=== PATIENT | female | born 1985 | race Caucasian/White ===

== ENCOUNTER 2016-07-30 19:35 | Inpatient (IN) | payer SELFPAY ==
[2016-07-30] MEDS ORDERED: ONDANSETRON 4 MG/2 ML VIAL IVP ONE (20:23)
[2016-07-30] MEDS ORDERED: HYDROmorphONE/DILAUDID 1 MG/ML SYR IVP ONE (20:23)
[2016-07-30] MEDS ORDERED: NS 1,000 ML IV ONE (20:23)
--- NOTE | 2016-07-30 20:26 | EDPHY ---
H & P Time Seen by Provider: 07/30/16 20:20 HPI/ROS: HPI Abdominal pain. 31-year-old female by private vehicle with boyfriend. She complains of worsening right lower quadrant abdominal pain ongoing for 6 hours now. She has had nausea with 2 episodes of nonbilious, nonbloody vomiting. Prior abdominal surgical history includes a cholecystectomy and hysterectomy. Last bowel movement was earlier this morning. Described as normal. No bloody or melenic stool. Last meal was this morning. She describes having some gross hematuria. No other urinary complaints. No fever. ROS: Constitutional: No fever, no chills. No weakness. Eyes: No discharge. No changes in vision. ENT: No sore throat. No nasal congestion or rhinorrhea. Respiratory: No cough. No shortness of breath. Cardiac: No chest pain, no palpitations. Gastrointestinal: As above, no diarrhea. Genitourinary: As above. No dysuria or increased frequency with urination. Musculoskeletal: No back pain. No neck pain. No myalgias or arthralgias. Skin: No rashes. Neurological: No headache. No focal weakness or altered sensation. Past medical history: As above. Seizure disorder. Social history: Physical Exam: General Appearance: Alert, she appears uncomfortable. This patient is responding to questions appropriately and in full sentences. This patient appears well-hydrated and well-nourished. Eyes: Pupils equal and round no pallor or injection. No lid edema, erythema or injection. Respiratory: There are no retractions, lungs are clear to auscultation with good air movement bilaterally. Cardiovascular: Regular rate and rhythm. No murmur. Gastrointestinal: Focal right lower quadrant tenderness on palpation with guarding, no masses, bowel sounds normal. No Smith sign. Neurological: Motor sensory function is grossly intact. Cranial nerves are normal. Gait is normal. Skin: Warm and dry, no rashes. Musculoskeletal: Neck is supple and nontender. No CVA tenderness on palpation. Extremities are symmetrical. All joints range without pain or impingement. Psychiatric: No agitation. No depression. Database: EKG: Imaging: CT abdomen and pelvis with IV contrast: Significant for early appendicitis. Procedures: Emergency department course: IV placed. Patient placed on a monitor. She was started on IV normal saline with 1 L to be given over the next hour. She was initially given 1 mg of IV hydromorphone for pain and 4 mg of IV Zofran for nausea. I discussed differential diagnosis and need for CT imaging to evaluate for appendicitis. She consents. 8:50 p.m., patient awaiting CT imaging to evaluate for appendicitis. Care transferred to physician medical assistant dermatology Emir Laureano. Dr. Nuvia Huff is aware of this patient also. Differential Diagnosis: The differential diagnosis on this patient includes but is not limited to appendicitis, ureterolithiasis, ovarian torsion, ectopic , colitis, ovarian cyst. This represents a partial list of diagnoses considered. These considerations are based on history, physical exam, past history, reassessment and diagnostic testing. Smoking Status: Never smoked Constitutional: Initial Vital Signs Temperature (C) 37.1 C 07/30/16 19:58 Heart Rate 91 07/30/16 19:58 Respiratory Rate 20 07/30/16 19:58 Blood Pressure 112/71 07/30/16 19:58 O2 Sat (%) 95 07/30/16 19:58 O2 Delivery Mode Room Air Allergies/Adverse Reactions: cephalexin monohydrate [From Keflex] Allergy (Verified 07/30/16 19:57) ketorolac tromethamine [From Toradol] Allergy (Verified 07/30/16 19:57) morphine Allergy (Verified 07/30/16 19:57) nitrofurantoin [From Macrobid] Allergy (Verified 07/30/16 19:57) nitrofurantoin macrocrystalline [From Macrobid] Allergy (Verified 07/30/16 19:57 ) Home Medications: Medication Instructions Recorded Gabapentin [Neurontin] 1,200 mg PO TID 07/30/16 QUEtiapine FUMARATE [Seroquel 100 150 mg PO HS 07/31/16 mg (*)] Medical Decision Making - Data Points Laboratory Results: Laboratory Results 07/30/16 20:41 07/30/16 20:41 Medications Given: Discontinued Medications Diphenhydramine HCl (Benadryl Injection) 25 mg IVP EDNOW ONE Stop: 07/30/16 21:23 Last Admin: 07/30/16 21:22 Dose: 25 mg Fentanyl (Sublimaze) 100 mcg IV ONCE ONE Stop: 07/30/16 22:21 Last Admin: 07/30/16 22:54 Dose: 100 mcg Hydromorphone HCl (Dilaudid) 1 mg IVP EDNOW ONE Stop: 07/30/16 20:24 Last Admin: 07/30/16 20:49 Dose: 1 mg Sodium Chloride (Ns) 1,000 mls @ 0 mls/hr IV ONCE ONE PRN Reason: Wide Open Stop: 07/30/16 20:24 Last Admin: 07/30/16 20:49 Dose: 1,000 mls Ertapenem 1 gm/ Sodium (Chloride) 100 mls @ 200 mls/hr IV ONCE ONE Stop: 07/31/16 00:59 Last Admin: 07/31/16 05:28 Dose: Not Given Ondansetron HCl (Zofran) 4 mg IVP EDNOW ONE Stop: 07/30/16 20:24 Last Admin: 07/30/16 20:49 Dose: 4 mg Departure - Departure Disposition: [facility] Acute Clinical Impression: Lower abdominal pain Acute appendicitis Qualifiers: Acute appendicitis type: with localized peritonitis Qualifier Code: (K35.3) Acute appendicitis with localized peritonitis Condition: Good
[2016-07-30 20:49] LABS: COLOR YELLOW; LEUKOCYTE ESTERASE,URINE TRACE (NEGATIVE); NITRITE,URINE NEGATIVE (NEGATIVE)
[2016-07-30 20:58] LABS: % IMMATURE GRANULYOCYTES 0.2 % (0.0-1.1); ABSOLUTE IMMATURE GRANULOCYTES 0.01 10^3/uL (0.00-0.10); ADD DIFF? NO; ADD MORPH? NO; ADD SCAN? NO; ATYPICAL LYMPHOCYTE FLAG 20 (0-99); FRAGMENT RBC FLAG 20 (0-99); HEMATOCRIT 32.3 % (38.0-47.0); HEMOGLOBIN 9.5 g/dL (12.6-16.3); LEFT SHIFT FLG 0 (0-99); LIPEMIA HEMOLYSIS FLAG 70 (0-99); MEAN CELL HEMOGLOBIN 22.4 pg (27.9-34.1); MEAN CELL HEMOGLOBIN CONCENTR. 29.4 g/dL (32.4-36.7); MEAN CELL VOLUME 76.2 fL (81.5-99.8); PLATELET CLUMPS FLAG 10 (0-99); PLATELET COUNT 267 10^3/uL (150-400); RED BLOOD CELL COUNT 4.24 10^6/uL (4.18-5.33); RED CELL DISTRIBUTION WIDTH 16.8 % (11.5-15.2)
[2016-07-30 21:00] LABS: BACTERIA TRACE /hpf (NONE SEEN); MUCUS TRACE /lpf (NONE-1+)
[2016-07-30 21:07] LABS: ANION GAP 11 mEq/L (8-16); CALCIUM 9.1 mg/dL (8.5-10.4); CARBON DIOXIDE 26 mEq/l (22-31); CHLORIDE 104 mEq/L (97-110); CREATININE 0.6 mg/dL (0.6-1.0); GLOMERULAR FILTRATION RATE > 60; GLUCOSE 112 mg/dL (70-100); POTASSIUM 4.4 mEq/L (3.5-5.2); SODIUM 141 mEq/L (134-144)
[2016-07-30] MEDS ORDERED: IOPAMIDOL (ISOVUE-300) 50 ML VIAL IV ONE ×2 (21:15)
[2016-07-30] MEDS ORDERED: fentaNYL 100 MCG/2 ML INJ IV ONE (22:20)
--- NOTE | 2016-07-30 22:20 | EDPHY ---
General Time Seen by Provider: 07/30/16 20:20 Narrative: CHIEF COMPLAINT: Abdominal pain, right lower quadrant HISTORY OF PRESENT ILLNESS: sudden onset of right lower quadrant abdominal pain. It is sharp stabbing pain that does not radiate. It is associated with several episodes of nausea or vomiting. No fever but some chills. Does not feel like previous stone pain, Though she does have a history of this. Mild gross hematuria. No vaginal bleeding or discharge. No trauma or injury. Attempted he twice but throughout. No food in the last 3 hours. No other associated complaints or modifying factors. REVIEW OF SYSTEMS: Ten systems reviewed and are negative unless otherwise noted in the HPI EXAMINATION: General Appearance: Alert, no distress Head: normocephalic, atraumatic Eyes: Pupils equal and round, no conjunctival pallor or injection ENT, Mouth: Mucous membranes moist Neck: Normal inspection, supple, non-tender Respiratory: Lungs are clear to auscultation Cardiovascular: Regular rate and rhythm Gastrointestinal: Abdomen is soft and nontender. No tympany. No rigidity. Non- acute abdomen. Back: non-tender, no bony abnormalities Neurological: A&O, nonfocal, normal gait Skin: Warm and dry, no rash Extremities: Nontender, no pedal edema Psychiatric: Mood and affect normal DIFFERENTIAL DIAGNOSES: Including but not limited to Acute appendicitis, colitis, diverticulitis, ovarian torsion, ovarian cyst, renal stone, ureteral stone MDM: right lower quadrant abdominal pain with significant tenderness to palpation. There is mild gross hematuria. Labs are positive for hematuria but no leukocytosis. CT scan just returned with interpretation of edema at the base of the appendix with an appendicolith. No edema of the entire appendix. No other abnormalities noted. No stones noted. I have paged general surgery for consult on this. She remains hemodynamically stable at this time. 2300 Patient has been evaluated by General surgery, and he has diagnosed with acute appendicitis. He was taken to the operating room for laparoscopic appendectomy as documented by his note. Plan for observation status. Please see his note for details SUPERVISION: Patient was evaluated in conjunction with the supervising physician. Please see their note for details. - History Smoking Status: Never smoked - Objective Vital Signs: Initial Vital Signs Temperature (C) 98.8 F 07/30/16 19:58 Heart Rate 91 07/30/16 19:58 Respiratory Rate 20 07/30/16 19:58 Blood Pressure 112/71 07/30/16 19:58 O2 Sat (%) 95 07/30/16 19:58 O2 Delivery Mode Room Air Allergies/Adverse Reactions: cephalexin monohydrate [From Keflex] Allergy (Verified 07/30/16 19:57) ketorolac tromethamine [From Toradol] Allergy (Verified 07/30/16 19:57) morphine Allergy (Verified 07/30/16 19:57) nitrofurantoin [From Macrobid] Allergy (Verified 07/30/16 19:57) nitrofurantoin macrocrystalline [From Macrobid] Allergy (Verified 07/30/16 19:57 ) Home Medications: Medication Instructions Recorded Gabapentin 07/30/16 Laboratory Results: Laboratory Results 07/30/16 20:41 07/30/16 20:41 07/30/16 07/30/16 20:41 20:35 WBC 4.89 10^3/uL (3.80-9.50) RBC 4.24 10^6/uL (4.18-5.33) Hgb 9.5 L g/dL (12.6-16.3) Hct 32.3 L % (38.0-47.0) MCV 76.2 L fL (81.5-99.8) MCH 22.4 L pg (27.9-34.1) MCHC 29.4 L g/dL (32.4-36.7) RDW 16.8 H % (11.5-15.2) Plt Count 267 10^3/uL (150-400) MPV 10.0 fL (8.7-11.7) Neut % (Auto) 57.4 % (39.3-74.2) Lymph % (Auto) 31.9 % (15.0-45.0) [place] % (Auto) 7.6 % (4.5-13.0) Eos % (Auto) 2.5 % (0.6-7.6) Baso % (Auto) 0.4 % (0.3-1.7) Nucleat RBC Rel Count 0.0 % (0.0-0.2) Absolute Neuts (auto) 2.81 10^3/uL (1.70-6.50) Absolute Lymphs (auto) 1.56 10^3/uL (1.00-3.00) Absolute Monos (auto) 0.37 10^3/uL (0.30-0.80) Absolute Eos (auto) 0.12 10^3/uL (0.03-0.40) Absolute Basos (auto) 0.02 10^3/uL (0.02-0.10) Absolute Nucleated RBC 0.00 10^3/uL (0-0.01) Immature Gran % 0.2 % (0.0-1.1) Immature Gran # 0.01 10^3/uL (0.00-0.10) Sodium 141 mEq/L (134-144) Potassium 4.4 mEq/L (3.5-5.2) Chloride 104 mEq/L (97-110) Carbon Dioxide 26 mEq/l (22-31) Anion Gap 11 mEq/L (8-16) BUN 8 mg/dL (7-23) Creatinine 0.6 mg/dL (0.6-1.0) Estimated GFR > 60 Glucose 112 H mg/dL (70-100) Calcium 9.1 mg/dL (8.5-10.4) Beta HCG, Qual NEGATIVE Urine Color YELLOW Urine Appearance CLEAR Urine pH 7.0 (5.0-7.5) Ur Specific [place] 1.010 (1.002-1.030) Urine Protein 1+ H (NEGATIVE) Urine Ketones NEGATIVE (NEGATIVE) Urine Blood 3+ H (NEGATIVE) Urine Nitrate NEGATIVE (NEGATIVE) Urine Bilirubin NEGATIVE (NEGATIVE) Urine Urobilinogen NEGATIVE EU (0.2-1.0) Ur Leukocyte Esterase TRACE H (NEGATIVE) Urine RBC 10-15 H /hpf (0-3) Urine WBC 5-10 H /hpf (0-3) Ur Epithelial Cells 1+ /lpf (NONE-1+) Urine Bacteria TRACE H /hpf (NONE SEEN) Urine Mucus TRACE /lpf (NONE-1+) Ur Culture Indicated? INDICATED H (NI) Urine Glucose NEGATIVE (NEGATIVE) Medications Given: Discontinued Medications Diphenhydramine HCl (Benadryl Injection) 25 mg IVP EDNOW ONE Stop: 07/30/16 21:23 Last Admin: 07/30/16 21:22 Dose: 25 mg Fentanyl (Sublimaze) 100 mcg IV ONCE ONE Stop: 07/30/16 22:21 Last Admin: 07/30/16 22:54 Dose: 100 mcg Hydromorphone HCl (Dilaudid) 1 mg IVP EDNOW ONE Stop: 07/30/16 20:24 Last Admin: 07/30/16 20:49 Dose: 1 mg Sodium Chloride (Ns) 1,000 mls @ 0 mls/hr IV ONCE ONE PRN Reason: Wide Open Stop: 07/30/16 20:24 Last Admin: 07/30/16 20:49 Dose: 1,000 mls Ondansetron HCl (Zofran) 4 mg IVP EDNOW ONE Stop: 07/30/16 20:24 Last Admin: 07/30/16 20:49 Dose: 4 mg Departure - Departure Disposition: [facility] Inpatient Acute Clinical Impression: Lower abdominal pain Acute appendicitis Qualifiers: Acute appendicitis type: with localized peritonitis Qualifier Code: (K35.3) Acute appendicitis with localized peritonitis Condition: Good Referrals: NONE *PRIMARY CARE P,. [Primary Care Provider] - As per Instructions Reggie Givens MD [Medical Doctor] - As per Instructions
--- NOTE | 2016-07-30 22:35 | CT ---
CT Abdomen and Pelvis, With Intravenous Contrast History: Right lower quadrant pain, nausea, vomiting. Technique: The patient received 90 mL of Isovue-300 intravenously, given by automated power machine injector. Multidetector helical CT of the abdomen and pelvis was performed using dose reduction tech nology. Findings: Appendicolith is present at the junction of the appendix with the cecum. The base of the appendix is mildly swollen up to 10 or 11 mm maximum diameter. Further distally, the appendix is of normal size, about 6 to 8 mm diameter. No abscess is identified. No free fluid in the pelvis. The uterus is retroflexed. No adnexal masses are found. No dilatation of bowel. Gallbladder is absent. Biliary ducts are not dilated. No masses in the liver and spleen. The pancr eas, adrenal glands, and kidneys are normal. No evidence of urinary stone. Impression: Early inflammation at the base of the appendix, with appendicolith. I discussed results with Emir Laureano PA-C, at 2215 hours.
[2016-07-30] MEDS ORDERED: SKIN ADHESIVE (DERMABOND) 1 EACH TP ONE (23:34)
[2016-07-30] MEDS ORDERED: BUPIVACAINE/EPI 0.25% 30 ML SDV ONE (23:34)
--- NOTE | 2016-07-30 23:45 | GHP ---
[f rep st] PREOP HISTORY AND PHYSICAL DATE OF ADMISSION: 07/30/2016 CHIEF COMPLAINT: Abdominal pain. HISTORY OF PRESENT ILLNESS: This is an otherwise fairly healthy 31-year-old female who woke this mor vidal, had breakfast uneventfully, was lying down to watch a movie, at which point in time late montez solomon, she began to have focal right lower quadrant tenderness. This pain progressed throughout the day. The patient states that it progressed to the point where her finally came home from work la ter this evening and because the pain was such that the patient was doubled over presented here. Her e in the emergency department, the patient describes the pain as pinpoint right lower quadrant at McB urney's point without radiation, and sharp, 8/10 and worse intensity. Slightly relieved with IV narc otics, however, persistent and progressive at this point in time. She denies having nausea, vomiting , fevers or chills, and states that only the abdominal pain is her current symptom at this point in t bayron. She has never had pain like this before. She does endorse having a history of renal lithiasis, for which she states is more of a posterior pain markedly different from this. She denies having an y other sick contacts, and states that the pain is progressive in nature. PAST MEDICAL HISTORY: Significant for seizures and trouble sleeping. PAST SURGICAL HISTORY: Laparoscopic cholecystectomy and section done in 2009 and 2008, resp ectively. MEDICATIONS: Currently include gabapentin and Seroquel. ALLERGIES: Include Keflex, Toradol, morphine, Macrobid. REVIEW OF SYSTEMS: A full 10-point review was performed and unless explicitly stated above is otherw ise negative. PHYSICAL EXAM: VITAL SIGNS: Temperature 37.1, blood pressure 118/76, heart rate 104, and she is 95% on room air. GENERAL: She is alert and oriented, mild distress. CV: She is tachycardic without a ny murmurs. LUNGS: Clear. ABDOMEN: Obese, tender to palpation at McBurney's point with rebound te nderness and guarding. EXTREMITIES: Warm. LABORATORY DATA: White blood cell count normal at 5, H and H low at 9 and 32, respectively. Supervising Architect robe are unremarkable with the exception of a glucose at 112. CT scan of the abdomen and pelvis was performed, which does show early inflammation at the base of the appendix with an adjacent appendicol ith, could be suggestive of early appendicitis. ASSESSMENT AND PLAN: A 31-year-old female with acute onset right lower quadrant pain. CT scan sugge stive of early appendicitis. I discussed with the patient that her history, although not classic [place] s appear to be early appendicitis. I offered her exploratory laparoscopy with likely appendectomy gi funmi her symptoms. I do feel that there is a reasonable expectation that we will have complete relief of her pain. I will give her some IV antibiotics in the meantime with plans to take her to the oper ating room to explore her abdomen with an appendectomy. I discussed the risks, benefits, and alterna tives, she elected to proceed. /[id number]/MODL
[2016-07-31] MEDS ORDERED: MIDAZOLAM 2 MG/2 ML VIAL ONE ×2 (00:04→01:49)
[2016-07-31] MEDS ORDERED: LIDOCAINE 2% 100 MG/5 ML SYR IVP ONE (00:07)
[2016-07-31] MEDS ORDERED: ONDANSETRON 4 MG/2 ML VIAL ONE (00:07)
[2016-07-31] MEDS ORDERED: SUGAMMADEX SODIUM 200 MG/2 ML VIAL IVP ONE (00:07)
[2016-07-31] MEDS ORDERED: ROCURONIUM 50 MG/5 ML VIAL ONE (00:07)
[2016-07-31] MEDS ORDERED: fentaNYL 250 MCG/5 ML INJ ONE (00:07)
[2016-07-31] MEDS ORDERED: DEXAMETHASONE 4 MG/ML VIAL ONE (00:07)
[2016-07-31] MEDS ORDERED: PROPOFOL 200 MG/20 ML VIAL ONE (00:07)
[2016-07-31] MEDS ORDERED: ERTAPENEM 1 GM in NS 100 ML IV ONE (00:30)
[2016-07-31] MEDS ORDERED: fentaNYL 100 MCG/2 ML INJ ONE (01:08)
[2016-07-31] MEDS ORDERED: HYDROmorphONE/DILAUDID 1 MG/ML SYR ONE (01:22)
[2016-07-31] MEDS ORDERED: PROMETHAZINE HCL 25 MG/ML VIAL ONE (01:34)
[2016-07-31] MEDS ORDERED: MIDAZOLAM 2 MG/2 ML VIAL IVP SCH (01:50)
[2016-07-31] MEDS ORDERED: HYDROCODONE/APAP 5/325 TAB PO PRN (01:55)
--- NOTE | 2016-07-31 01:58 | POSTOPPROG ---
Post Op Note Date of Operation: 07/31/16 Surgeon: Reggie Givens Anesthesiologist: Kaylynn Anesthesia: GET(General Endotracheal) Pre-op Diagnosis: appendicitis Post-op Diagnosis: same Procedure: lap appy Findings: bas indurated, early appendicitis Inf/Abcess present in the surg proc area at time of surgery?: No EBL: Minimal Specimen(s): appendix
[2016-07-31] MEDS: HYDROmorphONE/DILAUDID 1 MG/ML SYR IVP PRN ×10 (02:37→23:22)
[2016-07-31] MEDS: D5W 1/2 NS W/ 20 KCl/L 1,000 ML IV SCH ×2 (02:37→15:13)
[2016-07-31] MEDS: GABAPENTIN 400 MG CAP PO SCH ×2 (03:39→10:46)
[2016-07-31] MEDS: ONDANSETRON 4 MG/2 ML VIAL IVP PRN ×2 (03:46→09:44)
--- NOTE | 2016-07-31 10:58 | SOAPPROG ---
SOAP Progress Note Assessment/Plan: Assessment/Plan - 31yo female POD#1 s/p lappy for early appendicitis - Minimal PO overnight. Still having some abdominal pain, patient unsure whether it is incisional or similar to that she was experiencing pre-op. Will cont to supplement with IVF and IV pain medications. Incisions c/d/i, covered with glue, abdomen is appropriately tender. Have encouraged her to increase PO intake throughout the day. Will re-eval but likely not home today 07/31/16 10:56 Subjective: Still having some abd pain, improved. Minimal PO intake Objective: Vital Signs Temp Pulse Resp BP Pulse Ox 36.9 C 94 16 92/52 L 91 L 07/31/16 08:18 07/31/16 08:18 07/31/16 08:18 07/31/16 08:18 07/31/16 08:18 07/30/16 07/31/16 08/01/16 05:59 05:59 05:59 Intake Total 1500 Output Total 610 Balance 890 ICD10 Worksheet Patient Problems: Problems Problem Status Diagnosed Acute appendicitis Acute Lower abdominal pain Acute
--- NOTE | 2016-07-31 13:48 | GOP ---
[f rep st] OPERATIVE REPORT DATE OF OPERATION: 07/31/2016 SURGEON: Reggie Givens MD PRESS TENDER SHORT GOODS: None. ANESTHESIA: General endotracheal. ANESTHESIOLOGIST: Dr. Ramires PREOPERATIVE DIAGNOSIS: Appendicitis. POSTOPERATIVE DIAGNOSIS: Early appendicitis. PROCEDURE PERFORMED: Laparoscopic appendectomy. FINDINGS: Appendix did appear somewhat indurated at the base. The remainder of the abdominal exam h ad no significant findings. SPECIMENS: Appendix. DESCRIPTION OF PROCEDURE: The patient was greeted in the preoperative area. Once again, risks, bene fits, and alternatives were discussed. Consent was signed. She was then brought back to the operati ve suite, placed on the OR table in the supine position. After all anesthesia machines were on and functioning, including SCDs were on and functioning, World Health Organization timeout was performed . Antibiotics were given on-call to the operating room. General endotracheal anesthesia was then in duced without incident. The patient's abdomen was then widely prepped and draped in a typical steril e fashion. I entered the abdomen using the Veress needle in the left upper quadrant. Once successfully in, I in sufflated to 15 mmHg CO2, which was well tolerated by the patient. I entered the abdomen using the V isiport in a supraumbilical position using a 0 degree laparoscoped. Once successfully in the abdomen , I placed 2 additional 5 mm trocars, 1 in the suprapubic and 1 in the left lower quadrant. After I placed my 2 additional ports, I identified the appendix by tracing the taeniae inferiorly. A gain, the base did have some adjacent inflammation to it, but the remainder the appendix did not have any significant findings. I created a window at the base of the appendix. Through this window, I u sed a single blue load of the Endo-ANTONIO stapler to amputate the appendix from its cecal base. In a si milar fashion, using now a white load I amputated the mesoappendix. I then removed the appendix usin g an EndoCatch bag. Hemostasis at the surgical site was noted to be excellent. I did suction out some blood from my diss ection, but there was no active extravasation. I then turned the laparoscope around the patient's ab domen, right upper quadrant, left upper quadrant and pelvis, and I saw no other significant findings or anything else of concern. I then infiltrated local anesthetic into all the port sites under direct visualization. Pneumoperito neum was then evacuated. My 10 mm port site was then closed with an interrupted 0 Vicryl stitch in a [id number] fashion, noting excellent fascial reapproximation. The skin was then closed with 4- 0 Monocryl, over which Dermabond was placed. The patient was then extubated in the operative suite and taken to the PACU in satisfactory condition . DRAINS: None. COMPLICATIONS: None. COUNTS: All counts were reported as correct. /[id number]/MODL
[2016-07-31] MEDS: GABAPENTIN 300 MG CAP PO SCH ×2 (15:06→21:22)
[2016-07-31] MEDS: oxyCODONE IR 5 MG TAB PO PRN ×2 (15:06→23:15)
[2016-07-31] MEDS: ONDANSETRON DISINTEGRATING 4 MG TAB PO PRN (15:43)
[2016-07-31] MEDS ORDERED: NON-FORMULARY NEW DRUG (Gabapentin [Neurontin] 1,200 MG) PO SCH (16:00)
[2016-07-31] MEDS ORDERED: QUEtiapine FUMARATE 100 MG TAB PO SCH (21:00)
[2016-07-31] MEDS: QUEtiapine FUMARATE 50 MG TAB PO SCH (21:22)
[2016-08-01] MEDS ORDERED: traMADol 50 MG TAB PO ONE (01:00)
[2016-08-01] MEDS: D5W 1/2 NS W/ 20 KCl/L 1,000 ML IV SCH (01:14)
[2016-08-01] MEDS: HYDROmorphONE/DILAUDID 1 MG/ML SYR IVP PRN ×10 (01:21→21:55)
[2016-08-01] MEDS: oxyCODONE IR 5 MG TAB PO PRN ×3 (09:01→17:53)
[2016-08-01] MEDS: GABAPENTIN 300 MG CAP PO SCH ×3 (09:01→20:36)
[2016-08-01 09:44] LABS: % IMMATURE GRANULYOCYTES 0.1 % (0.0-1.1); ABSOLUTE IMMATURE GRANULOCYTES 0.01 10^3/uL (0.00-0.10); ADD DIFF? NO; ADD MORPH? NO; ADD SCAN? NO; ATYPICAL LYMPHOCYTE FLAG 20 (0-99); FRAGMENT RBC FLAG 20 (0-99); HEMATOCRIT 30.8 % (38.0-47.0); LEFT SHIFT FLG 0 (0-99); LIPEMIA HEMOLYSIS FLAG 70 (0-99); MEAN CELL HEMOGLOBIN 22.3 pg (27.9-34.1); MEAN CELL HEMOGLOBIN CONCENTR. 29.2 g/dL (32.4-36.7); MEAN CELL VOLUME 76.2 fL (81.5-99.8); MEAN PLATELET VOLUME 9.7 fL (8.7-11.7); PLATELET CLUMPS FLAG 0 (0-99); PLATELET COUNT 287 10^3/uL (150-400); RED BLOOD CELL COUNT 4.04 10^6/uL (4.18-5.33); RED CELL DISTRIBUTION WIDTH 16.9 % (11.5-15.2)
--- NOTE | 2016-08-01 11:44 | SOAPPROG ---
SOAP Progress Note Assessment/Plan: Assessment/Plan: 31 Y F s/p lap appy. C/o pain. WBCs normal. Afebrile. Per OR reports surgery was uneventful and appendix was indurated but not perforated. She has had lap alberto and csxn and says this post op pain is worse. Doubt abscess, but abdominal exam is concerning. On exam the pain seems incisional, but she says it is deeper. Given all of this, I am considering repeat CT Abd/pel. Will d/w Dr. Seaman who will also see the patient. 08/01/16 11:41 Subjective: c/o mid abd pain. Passing gas, but no stool. eating. Objective: Vital Signs Temp Pulse Resp BP Pulse Ox 36.8 C 79 16 105/66 95 08/01/16 08:40 08/01/16 08:40 08/01/16 08:40 08/01/16 08:40 08/01/16 08:40 Laboratory Results 08/01/16 09:30 07/31/16 08/01/16 08/02/16 05:59 05:59 05:59 Intake Total 2950 Output Total 800 Balance 2150 alert, nad, oriented. mmm, pupils equal, no jaundice ctab rrr abd soft, inc cdi, no erythema, +periumbilical tenderness at largest inc, minimal RLQ tenderness ICD10 Worksheet Patient Problems: Problems Problem Status Diagnosed Acute appendicitis Acute Lower abdominal pain Acute
[2016-08-01] MEDS: ONDANSETRON DISINTEGRATING 4 MG TAB PO PRN ×2 (12:06→20:37)
[2016-08-01] MEDS: IBUPROFEN 600 MG TAB PO PRN (20:36)
[2016-08-01] MEDS: traMADol 50 MG TAB PO PRN (20:37)
[2016-08-01] MEDS: QUEtiapine FUMARATE 50 MG TAB PO SCH (20:37)
[2016-08-02] MEDS ORDERED: GABAPENTIN 400 MG CAP PO SCH
[2016-08-02] MEDS: oxyCODONE IR 5 MG TAB PO PRN ×3 (01:16→11:42)
[2016-08-02] MEDS: traMADol 50 MG TAB PO PRN ×2 (03:43→10:46)
[2016-08-02] MEDS: ONDANSETRON DISINTEGRATING 4 MG TAB PO PRN (03:43)
[2016-08-02] MEDS: IBUPROFEN 600 MG TAB PO PRN (07:21)
[2016-08-02 08:11] VITALS: RESP 16
[2016-08-02] MEDS: GABAPENTIN 300 MG CAP PO SCH (10:45)
[2016-08-02 12:49] VITALS: BP 111/80; PULSE 83; TEMP 98.5; O2SAT 95
[2016-08-02] MEDS ORDERED: oxyCODONE IR 5 MG TAB PO SCH (15:04)
[2016-08-02] MEDS ORDERED: traMADol 50 MG TAB PO SCH (15:06)
== END 2016-08-02 15:42 | disposition home or self-care (01) | DRG 343 ==
LOC: F1N 07-31 02:11 → OBSVTOIN 07-31 10:56
PROVIDERS: ADMIT Surgery; ATTEND Surgery
PROC: 0DTJ4ZZ Resection of Appendix, Percutaneous Endoscopic Approach (ICD-10-PCS; principal; 2016-07-31 01:17)
DX: K35.80 Unspecified acute appendicitis (principal)
CPT/HCPCS: 96374; J1100; J1170; J1335; J2001; J2250; J2405; J2550; J2704; J3010; Q9967

== ENCOUNTER 2016-08-05 23:58 | Emergency (ER) | payer MEDICAID ==
[2016-08-06 00:04] VITALS: TEMP 99
[2016-08-06] MEDS ORDERED: NS 2,000 ML IV ONE (00:19)
[2016-08-06] MEDS ORDERED: HYDROmorphONE/DILAUDID 1 MG/ML SYR IVP ONE ×2 (00:19→01:46)
[2016-08-06] MEDS ORDERED: ONDANSETRON 4 MG/2 ML VIAL IVP ONE (00:19)
--- NOTE | 2016-08-06 00:19 | EDPHY ---
H & P Stated Complaint: fever, pain, vomiting postop 4 days ago HPI/ROS: HPI CHIEF COMPLAINT: Worsening abdominal pain, nausea, vomiting fever HISTORY OF PRESENT ILLNESS: This patient very pleasant 31-year-old female she does have significant past medical history for seizures and takes gabapentin, she was recently hospitalized on July 31 of this year for right lower quadrant pain and had an appendectomy by Dr. Givens. Patient states 2 extra days in the hospital for pain control. Patient tells me that she had severe abdominal pain status post appy due to most likely scar tissue from previous abdominal surgeries. She presents emergency room this evening with worsening abdominal pain she describes as sharp stabbing at midline radiating to her left lower abdomen. She endorses nausea with vomiting with this. Tells me that she had fever to 100.3 T-max at home throughout the day. Denies any diarrhea. Denies chest pain , shortness breath, cough, weakness. She tells me currently her pain is 8/10 mid abdomen radiating to her left abdomen. Sharp in nature. she describes her nausea with vomiting is nonbilious nonbloody. Past Medical History: Seizures on gabapentin Past Surgical History: Cholecystectomy, recent appendectomy Social History: Denies use of drugs, tobacco, alcohol Family History: Noncontributory ROS REVIEW OF SYSTEMS: A comprehensive 10 point review of systems is otherwise negative aside from elements mentioned in the history of present illness. Exam Constitutional triage nursing summary reviewed, vital signs reviewed, awake/ alert. Eyes normal conjunctivae and sclera, EOMI, PERRLA. HENT normal inspection, atraumatic, moist mucus membranes, no epistaxis, neck supple/ no meningismus, no raccoon eyes. Respiratory clear to auscultation bilaterally, normal breath sounds, no respiratory distress, no wheezing. Cardiovascular rate normal, regular rhythm, no murmur, no edema, distal pulses normal. Gastrointestinal abdomen is soft, laparoscopic incisions are clean, dry and intact, minimal bruising around incision sites, she does have mild tenderness palpation mid abdomen superior to her umbilicus. No right lower quadrant pain. , no rebound, no guarding, normal bowel sounds, no distension, no pulsatile mass. Genitourinary no CVA tenderness. Musculoskeletal no midline vertebral tenderness, full range of motion, no calf swelling, no tenderness of extremities, no meningismus, good pulses, neurovascularly intact. Skin pink, warm, & dry, no rash, skin atraumatic. Neurologic awake, alert and oriented x 3, AAOx3, moves all 4 extremities equally, motor intact, sensory intact, CN II-XII intact, normal cerebellar, normal vision, normal speech. Psychiatric normal mood/affect. Heme/Lymph/Immune no lymphadenopathy. Differential diagnosis includes but is not limited to and in no particular order : Bowel obstruction, Postoperative complication, scar tissue pain, ileus, gallbladder disease, diverticulitis, colitis, enteritis, perforated viscus, gastritis, GERD, esophagitis, urinary tract infection, pyelonephritis, kidney stones Medical Decision Making:This patient had an IV established will obtain blood work, patient be hydrated with IV fluids Dilaudid for pain control Zofran for nausea. Given the patient's amount of tenderness on exam and recent surgery she will have a CT abdomen pelvis with IV contrast rule out postoperative complication like intra-abdominal abscess, ileus, SBO, bowel perforation, free air. I think this is unlikely given how well she looks however will proceed with blood work CT pain control IV fluids. Re-evaluation: CT scan of the Abdomen pelvis with IV contrast. The results of the study are negative for acute inflammatory process no signs of postop complication The study was read by Dr. Stewart. I viewed the images myself on the PACS system. 0246: Re-examination at this time; the patient's abdomen is soft resting comfortably no vomiting. Pain is well controlled her blood work has been reviewed there is no high white blood cell count. Patient requests to be discharged home. She is reassuring CT I did give her strict return precautions she understands return to the emergency room she develops worsening symptoms includes abdominal pain, fever, vomiting. There is no indication she has a postsurgical complication from laparoscopic appendectomy. She is comfortable this plan. Source: Patient - Personal History LMP (Females 10-55): 8-14 Days Ago Current Tetanus Diphtheria and Acellular Pertussis (TDAP): Yes - Medical/Surgical History Hx Asthma: No Hx Chronic Respiratory Disease: No Hx Diabetes: No Hx Cardiac Disease: No Hx Renal Disease: No Hx Cirrhosis: No Hx Alcoholism: No Hx HIV/AIDS: No Hx Splenectomy or Spleen Trauma: No Other PMH: seizures, kidney stones, gallbalder surgery, - Social History Smoking Status: Never smoked Constitutional: Initial Vital Signs Temperature (C) 37.2 C 01/23/17 00:01 Heart Rate 93 08/06/16 00:01 Respiratory Rate 20 08/06/16 00:01 Blood Pressure 114/83 H 08/06/16 00:01 O2 Sat (%) 95 08/06/16 00:01 O2 Delivery Mode Room Air Allergies/Adverse Reactions: cephalexin monohydrate [From Keflex] Allergy (Verified 07/30/16 19:57) ketorolac tromethamine [From Toradol] Allergy (Verified 07/30/16 19:57) morphine Allergy (Verified 07/30/16 19:57) nitrofurantoin [From Macrobid] Allergy (Verified 07/30/16 19:57) nitrofurantoin macrocrystalline [From Macrobid] Allergy (Verified 07/30/16 19:57 ) iv contra Allergy (Uncoded 08/06/16 00:01) Home Medications: Medication Instructions Recorded QUEtiapine FUMARATE [Seroquel 100 150 mg PO HS 07/31/16 mg (*)] Gabapentin [Neurontin] 1,200 mg PO TID 7 Days 08/02/16 oxyCODONE IR [Oxycodone Ir (*)] 5 - 10 mg PO Q4HRS PRN #30 tab 08/02/16 traMADol [Ultram 50 mg (*)] 50 mg PO Q6 PRN #30 tab 08/02/16 Hydrocodone/APAP 5/325 [[place] 1 - 2 tab PO Q4H PRN #4 tab 08/06/16 5/325] Medical Decision Making - Data Points Laboratory Results: Laboratory Results 08/06/16 00:40 08/06/16 00:40 08/06/16 00:40 WBC 5.27 10^3/uL (3.80-9.50) RBC 4.45 10^6/uL (4.18-5.33) Hgb 10.1 L g/dL (12.6-16.3) Hct 33.8 L % (38.0-47.0) MCV 76.0 L fL (81.5-99.8) MCH 22.7 L pg (27.9-34.1) MCHC 29.9 L g/dL (32.4-36.7) RDW 16.4 H % (11.5-15.2) Plt Count 368 10^3/uL (150-400) MPV 10.1 fL (8.7-11.7) Neut % (Auto) 47.8 % (39.3-74.2) Lymph % (Auto) 40.6 % (15.0-45.0) [place] % (Auto) 8.5 % (4.5-13.0) Eos % (Auto) 2.1 % (0.6-7.6) Baso % (Auto) 0.4 % (0.3-1.7) Nucleat RBC Rel Count 0.0 % (0.0-0.2) Absolute Neuts (auto) 2.52 10^3/uL (1.70-6.50) Absolute Lymphs (auto) 2.14 10^3/uL (1.00-3.00) Absolute Monos (auto) 0.45 10^3/uL (0.30-0.80) Absolute Eos (auto) 0.11 10^3/uL (0.03-0.40) Absolute Basos (auto) 0.02 10^3/uL (0.02-0.10) Absolute Nucleated RBC 0.00 10^3/uL (0-0.01) Immature Gran % 0.6 % (0.0-1.1) Immature Gran # 0.03 10^3/uL (0.00-0.10) VBG Lactic Acid 1.3 mmol/L (0.7-2.1) Sodium 145 H mEq/L (134-144) Potassium 4.0 mEq/L (3.5-5.2) Chloride 105 mEq/L (97-110) Carbon Dioxide 30 mEq/l (22-31) Anion Gap 10 mEq/L (8-16) BUN 7 mg/dL (7-23) Creatinine 0.7 mg/dL (0.6-1.0) Estimated GFR > 60 Glucose 90 mg/dL (70-100) Calcium 9.1 mg/dL (8.5-10.4) Total Bilirubin 0.3 mg/dL (0.1-1.4) Conjugated Bilirubin 0.2 mg/dL (0.0-0.5) Unconjugated Bilirubin 0.1 mg/dL (0.0-1.1) AST 51 H IU/L (14-46) ALT 109 H IU/L (9-52) Alkaline Phosphatase 130 H IU/L (38-126) Total Protein 7.0 g/dL (6.3-8.2) Albumin 3.8 g/dL (3.5-5.0) Lipase 28.0 IU/L (23-300) Beta HCG, Qual NEGATIVE Urine Color YELLOW Urine Appearance HAZY Urine pH 5.0 (5.0-7.5) Ur Specific [place] 1.011 (1.002-1.030) Urine Protein NEGATIVE (NEGATIVE) Urine Ketones NEGATIVE (NEGATIVE) Urine Blood 3+ H (NEGATIVE) Urine Nitrate NEGATIVE (NEGATIVE) Urine Bilirubin NEGATIVE (NEGATIVE) Urine Urobilinogen NEGATIVE EU (0.2-1.0) Ur Leukocyte Esterase NEGATIVE (NEGATIVE) Urine RBC 50-182 H /hpf (0-3) Urine WBC 1-3 /hpf (0-3) Ur Epithelial Cells TRACE /lpf (NONE-1+) Urine Bacteria TRACE H /hpf (NONE SEEN) Urine Mucus 1+ /lpf (NONE-1+) Ur Culture Indicated? NOT INDICATED (NI) Urine Glucose NEGATIVE (NEGATIVE) Medications Given: Discontinued Medications Diphenhydramine HCl (Benadryl Injection) 25 mg IVP EDNOW ONE Stop: 08/06/16 01:08 Last Admin: 08/06/16 01:09 Dose: 25 mg Hydromorphone HCl (Dilaudid) 0.5 mg IVP EDNOW ONE Stop: 08/06/16 00:20 Last Admin: 08/06/16 00:35 Dose: 1 mg Hydromorphone HCl (Dilaudid) 0.5 mg IVP EDNOW ONE Stop: 08/06/16 01:47 Last Admin: 08/06/16 01:53 Dose: 0.5 mg Sodium Chloride (Ns) 2,000 mls @ 0 mls/hr IV ONCE ONE PRN Reason: Wide Open Stop: 08/06/16 00:20 Last Admin: 08/06/16 01:02 Dose: 2,000 mls Ondansetron HCl (Zofran) 4 mg IVP EDNOW ONE Stop: 08/06/16 00:20 Last Admin: 08/06/16 01:04 Dose: 4 mg Departure - Departure Disposition: Home, Routine, Self-Care Clinical Impression: Constipation Qualifiers: Constipation type: slow transit constipation Qualifier Code: (K59.01) Slow transit constipation Abdominal pain Qualifiers: Abdominal location: generalized Qualifier Code: (R10.84) Generalized abdominal pain Condition: Good Instructions: Constipation (ED), Acute Abdominal Pain (ED) Additional Instructions: 1. return emergency room if develops worsening symptoms includes worsening abdominal pain, fever, vomiting 2. Please increase amount of fluids or drinking as her constipated 3. I would recommend he by MiraLax to help with her constipation 4.I have given you very limited supply of [place] at your request this can make her more constipated Referrals: NONE *PRIMARY CARE P,. [Primary Care Provider] - As per Instructions Reggie Givens MD [Medical Doctor] - As per Instructions Prescriptions: Hydrocodone/APAP 5/325 [[place] 5/325] 1 - 2 tab PO Q4H PRN #4 tab PRN Reason: Pain, Moderate
[2016-08-06 00:55] LABS: % IMMATURE GRANULYOCYTES 0.6 % (0.0-1.1); ABSOLUTE IMMATURE GRANULOCYTES 0.03 10^3/uL (0.00-0.10); ADD DIFF? NO; ADD MORPH? NO; ADD SCAN? NO; ATYPICAL LYMPHOCYTE FLAG 10 (0-99); FRAGMENT RBC FLAG 20 (0-99); HEMATOCRIT 33.8 % (38.0-47.0); HEMOGLOBIN 10.1 g/dL (12.6-16.3); LEFT SHIFT FLG 0 (0-99); LIPEMIA HEMOLYSIS FLAG 70 (0-99); MEAN CELL HEMOGLOBIN 22.7 pg (27.9-34.1); MEAN CELL HEMOGLOBIN CONCENTR. 29.9 g/dL (32.4-36.7); MEAN PLATELET VOLUME 10.1 fL (8.7-11.7); PLATELET CLUMPS FLAG 0 (0-99); PLATELET COUNT 368 10^3/uL (150-400); RED BLOOD CELL COUNT 4.45 10^6/uL (4.18-5.33); RED CELL DISTRIBUTION WIDTH 16.4 % (11.5-15.2)
[2016-08-06 01:04] LABS: COLOR YELLOW; LEUKOCYTE ESTERASE,URINE NEGATIVE (NEGATIVE); NITRITE,URINE NEGATIVE (NEGATIVE)
[2016-08-06 01:10] LABS: BACTERIA TRACE /hpf (NONE SEEN); MUCUS 1+ /lpf (NONE-1+); RBC,URINE 50-182 /hpf (0-3)
[2016-08-06 01:14] LABS: ALANINE AMINOTRANSFERASE 109 IU/L (9-52); ALBUMIN 3.8 g/dL (3.5-5.0); ALKALINE PHOSPHATASE 130 IU/L (38-126); ANION GAP 10 mEq/L (8-16); ASPARTATE AMINOTRANSFERASE 51 IU/L (14-46); BILIRUBIN,TOTAL 0.3 mg/dL (0.1-1.4); BILIRUBIN-CONJUGATED 0.2 mg/dL (0.0-0.5); BILIRUBIN-UNCONJUGATED 0.1 mg/dL (0.0-1.1); CALCIUM 9.1 mg/dL (8.5-10.4); CARBON DIOXIDE 30 mEq/l (22-31); CHLORIDE 105 mEq/L (97-110); CREATININE 0.7 mg/dL (0.6-1.0); GLOMERULAR FILTRATION RATE > 60; GLUCOSE 90 mg/dL (70-100); SODIUM 145 mEq/L (134-144)
[2016-08-06] MEDS ORDERED: IOPAMIDOL (ISOVUE-300) 100 ML BTL IV ONE (01:25)
[2016-08-06 01:56] VITALS: RESP 16
[2016-08-06 03:05] VITALS: BP 98/70; PULSE 71; O2SAT 96
--- NOTE | 2016-08-06 08:44 | CT ---
CT Scan of the Abdomen and Pelvis With Contrast Indication: Abdominal pain in a 31-year-old female with a history of recent appendectomy. Technique: Multidetector CT images of the abdomen and pelvis were obtained following the uneventful i ntravenous administration of 90 mL Isovue-300 contrast. No oral contrast was administered. Axial imag es are obtained at 5 mm intervals and reformatted at 1.5 mm thickness. The examination is reviewed on the workstation at multiple window/level settings. Sagittal and coronal reformations are performed. Comparison to the preoperative study July 30, 2016. Dose reduction techniques were utilized for this examination. Abdomen: Lung bases: Normal. No pleural fluid. Liver: Normal. Biliary system: The gallbladder is surgically absent. No biliary ductal dilatation is seen.. Spleen: Normal. Pancreas: Normal. Adrenals: Normal. Kidneys: No obstruction or solid masses. Abdominal Aorta: No aneurysm. No bowel obstruction, ascites, or retroperitoneal lymphadenopathy. CT Pelvis Findings: Moderate fecal material is noted throughout the colon. Postoperative changes of a ppendectomy are noted. No Free fluid or free air is identified. Impression: 1. No acute abdominal or pelvic abnormality. Specifically, no postoperative complication from recent appendectomy. 2. See above report for additional findings. The study was performed as an emergency on-call case and discussed by telephone with Dr. Miles alberts at 0 150 hours. The final interpretation is concordant with the original communication.
== END 2016-08-06 03:05 | disposition home or self-care (01) ==
DX: K59.01 Slow transit constipation (principal); Z90.49 Acquired absence of other specified parts of digestive tract
CPT/HCPCS: 96374; J1170; J1200; J2405; Q9967